=== PATIENT | female | born 1965 | race Caucasian/White ===

== ENCOUNTER → 2023-09-03 10:50 | Outpatient (REF) | payer OTHER, SELFPAY | LOC: RAD 10:50 | PROVIDERS: ATTENDING PHYSICIAN Physician Assistant Surgical | DX: Z47.89 Encounter for other orthopedic aftercare (principal) | CPT/HCPCS: 76882 ==

== ENCOUNTER → 2024-08-05 13:47 | Outpatient (REF) | payer OTHER, SELFPAY | LOC: WDC 13:47 | PROVIDERS: ATTENDING PHYSICIAN Physician Assistant Medical | DX: Z12.31 Encounter for screening mammogram for malignant neoplasm of breast (principal) | CPT/HCPCS: 77063; 77067 ==

== ENCOUNTER → 2024-08-19 13:56 | Outpatient (REF) | payer OTHER, SELFPAY | LOC: WDC 13:56 | PROVIDERS: ATTENDING PHYSICIAN Physician Assistant Medical | DX: R92.8 Other abnormal and inconclusive findings on diagnostic imaging of breast (principal) | CPT/HCPCS: 76642 ==

== ENCOUNTER 2025-01-11 08:19 | Outpatient (RCR) | payer OTHER, SELFPAY | END 2025-01-11 23:59 | disposition home or self-care (01) | LOC: RST 08:19 | PROVIDERS: ATTENDING PHYSICIAN Otolaryngology | DX: R49.0 Dysphonia (principal); G25.0 Essential tremor; Z98.890 Other specified postprocedural states | CPT/HCPCS: 92507; 92524 ==

== ENCOUNTER → 2025-01-20 10:01 | Outpatient (REF) | payer OTHER, SELFPAY | LOC: WDC 10:01 | PROVIDERS: ATTENDING PHYSICIAN Physician Assistant Medical | DX: R92.333 Mammographic heterogeneous density, bilateral breasts (principal) | CPT/HCPCS: 76641 ==

== ENCOUNTER 2025-02-07 07:38 | Outpatient (RCR) | payer OTHER, SELFPAY | END 2025-02-07 23:59 | disposition home or self-care (01) | LOC: RST 07:38 | PROVIDERS: ATTENDING PHYSICIAN Otolaryngology | DX: R49.0 Dysphonia (principal); Z98.890 Other specified postprocedural states; G25.0 Essential tremor | CPT/HCPCS: 92507 ==

== ENCOUNTER 2025-03-07 09:28 | Outpatient (RCR) | payer OTHER, SELFPAY | END 2025-03-07 23:59 | disposition home or self-care (01) | LOC: RST 09:28 | PROVIDERS: ATTENDING PHYSICIAN Otolaryngology | DX: R49.0 Dysphonia (principal); G25.0 Essential tremor; Z98.890 Other specified postprocedural states | CPT/HCPCS: 92507 ==

== ENCOUNTER 2025-03-22 07:07 | Outpatient (RCR) | payer OTHER, SELFPAY | END 2025-03-23 07:00 | disposition home or self-care (01) | LOC: RST 07:07 | PROVIDERS: ATTENDING PHYSICIAN Otolaryngology | DX: R49.0 Dysphonia (principal); G25.0 Essential tremor; Z98.890 Other specified postprocedural states | CPT/HCPCS: 92507 ==